=== PATIENT | male | born 1990 | race Caucasian/White ===

== ENCOUNTER 2020-01-17 00:07 | Emergency (ER) | payer SELFPAY ==
[~2020-01-17] VITALS: Ht 180.3 cm; Wt 59.0 kg
[2020-01-17 00:52] VITALS: BP 142/102
--- NOTE | 2020-01-17 00:57 | NUR ---
PT REPORTS PAIN ON LEFT SIDE OF RIBCAGE, ERP AWARE.
[2020-01-17] MEDS ORDERED: OXYcodone/APAP 5/325MG TABLET PO ONE (01:00)
[2020-01-17] MEDS ORDERED: IBUPROFEN 600 MG TABLET PO ONE (01:00)
[2020-01-17] MEDS ORDERED: IBUPROFEN 600 MG TABLET ONE (01:01)
[2020-01-17] MEDS ORDERED: OXYcodone/APAP 5/325MG TABLET ONE (01:02)
== END 2020-01-17 01:19 | disposition home or self-care (01) ==
LOC: ED 01:07
DX: S20.212A Contusion of left front wall of thorax, initial encounter (principal); R07.89 Other chest pain; Y04.8XXA Assault by other bodily force, initial encounter; Y93.89 Activity, other specified; Y92.488 Other paved roadways as the place of occurrence of the external cause; Y99.8 Other external cause status
CPT/HCPCS: 93005; 99283